=== PATIENT | male | born 1955 | race Caucasian/White ===

== ENCOUNTER → 2019-03-05 | Outpatient (CLI) | payer OTHER ==
[~2019-03-05] MED LIST: ELIQUIS5 MG PO; GLIPIZIDE 10 MG10 MG PO; LISINOPRIL-HCT1 EAC2 PO; METFORMIN HCL500 M3 PO; NEURONTIN300 MG PO; PERCOCET 10-321 EAC1 PO; SYMBICORT160 MCG/4. INH; TAMBOCOR 100 M100 M1 PO; TOPROL XL50 MG PO; VITAMIN D250000 UNIT PO; ZOCOR20 MG PO
[2019-03-05 10:16] LABS: HEMATOCRIT 44.4 % (42.0-52.0); HEMOGLOBIN 14.2 gm/dL (14.0-18.0); MCHC 31.9 g/dL (28.0-37.0); MCV 81.6 fL (80.0-100.0); RBC 5.45 mil/uL (4.50-6.00); RDW 15.6 % (10.5-14.5); WBC 8.3 thou/uL (4.0-11.0)
[2019-03-05 10:25] LABS: ALBUMIN 3.7 g/dL (3.4-5.0); CALCIUM 9.8 mg/dL (8.5-10.1); POTASSIUM 4.3 mmol/L (3.5-5.1); TOTAL BILIRUBIN 0.6 mg/dL (<0.1-1.0); TOTAL PROTEIN 7.2 g/dL (6.4-8.2)
== END ==
LOC: CAT 09:39
PROVIDERS: Internal Medicine Cardiovascular Disease
DX: K76.89 Other specified diseases of liver (principal); I48.91 Unspecified atrial fibrillation

== ENCOUNTER 2019-03-13 06:38 | Observation (INO) | payer OTHER ==
[~2019-03-13] VITALS: Ht 182.9 cm; Wt 146.5 kg
[2019-03-13 07:11] VITALS: BP 138/82
[2019-03-13 07:19] LABS: ABSOLUTE NEUTROPHILS 6.4 thou/uL (1.4-8.2); BASOPHILS 0.9 % (0.0-2.0); EOSINOPHILS 2.7 % (0.0-3.0); HEMATOCRIT 45.6 % (42.0-52.0); HEMOGLOBIN 14.7 gm/dL (14.0-18.0); LYMPHOCYTES 13.9 % (24.0-44.0); MCH 26.3 pg (26.0-34.0); MCHC 32.2 g/dL (28.0-37.0); MCV 81.8 fL (80.0-100.0); MONOCYTES 10.3 % (1.0-8.0); PLATELET COUNT 239 thou/uL (150-400); POLYS 72.2 % (36.0-66.0); RBC 5.58 mil/uL (4.50-6.00); RDW 15.6 % (10.5-14.5); WBC 8.9 thou/uL (4.0-11.0)
[2019-03-13] MEDS ORDERED: ELIQUIS5 MG PO (07:23)
[2019-03-13] MEDS ORDERED: SYMBICORT160 MCG/4. INH (07:24)
[2019-03-13] MEDS ORDERED: NEURONTIN300 MG PO (07:25)
[2019-03-13] MEDS ORDERED: TAMBOCOR 100 M100 M1 PO (07:25)
[2019-03-13] MEDS ORDERED: GLIPIZIDE 10 MG10 MG PO (07:26)
[2019-03-13] MEDS ORDERED: METFORMIN HCL500 M3 PO (07:27)
[2019-03-13] MEDS ORDERED: LISINOPRIL-HCT1 EAC2 PO (07:27)
[2019-03-13] MEDS ORDERED: PERCOCET 10-321 EAC1 PO (07:28)
[2019-03-13] MEDS ORDERED: TOPROL XL50 MG PO (07:28)
[2019-03-13] MEDS ORDERED: ZOCOR20 MG PO (07:28)
[2019-03-13] MEDS ORDERED: VITAMIN D250000 UNIT PO (07:29)
[2019-03-13 07:31] LABS: CREATININE 1.2 mg/dL (0.7-1.3); POTASSIUM 4.1 mmol/L (3.5-5.1)
[2019-03-13 07:33] LABS: PROTIME 10.9 Seconds (9.3-11.4)
--- NOTE | 2019-03-13 08:04 | EKG ---
[address] [address] ELECTROCARDIOGRAM REPORT Name: AMBAR RAHMAN Room #: REG VALERIA Zoey#: [id number] Admission: 03/13/19 Attend Phys: Chandler Mccalulm MD Discharge: Date of : 51 Report #: [id number] THIS REPORT FOR: //name// [facility] Test Date: 2019-03-13 Test Time: 07:30:05 Pat Name: AMBAR RAHMAN Department: Room: Gender: Control Equipment Electrician: : 1955 Requested By: Chandler Mccallum Order Number: [id number] MD: Shen Morales Measurements Intervals [place] Rate: 95 P: -71 NC: 180 QRS: -71 QRSD: 144 T: 82 QT: 400 QTc: 503 Interpretive Statements Atrial flutter RBBB and LAFB Left ventricular hypertrophy No previous ECG available for comparison Electronically Signed On 03-13-2019 8:04:42 CDT by Shen Morales [email or web address] <ELECTRONICALLY SIGNED> By: Shen Morales MD, [facility] 03/13/19 0804 0730 0730 Shen Morales MD, FACC /EPI
--- NOTE | 2019-03-13 13:44 | NUR ---
PT ORIENTED TO ROOM AND UNIT. BED LOW AND LOCKED, SIDE RAILS UPX3, CALL LIGHT IN REACH. TELE APPLIED. RIGHT GROIN CDI WITH NO HEMATOMA. WILL CONTNINUE TO ASSESS.
--- NOTE | 2019-03-13 14:49 | NUR ---
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
[2019-03-13 14:58] VITALS: BP 121/100
--- NOTE | 2019-03-13 15:35 | NUR ---
HELP PRESSURE ON RIGHT GROIN FOR 5MIN. RIGHT GROIN OOZING RED BLOOS. OOZING HAS STOPPED. REINFORCE DRESSING.
--- NOTE | 2019-03-13 18:46 | NUR ---
CHANGE DRESSING RIGHT GROIN. INSTRUCTED BY [facility] NURSE TO CHANGE AND REINFORCE DRERSSING NEEDED.
[2019-03-13 20:29] VITALS: BP 124/84
[2019-03-14 00:30] VITALS: BP 126/69
[2019-03-14 04:30] VITALS: BP 125/74
[2019-03-14 07:46] VITALS: BP 142/66
[2019-03-14 07:47] LABS: HEMATOCRIT 40.6 % (42.0-52.0); HEMOGLOBIN 12.9 gm/dL (14.0-18.0); MCHC 31.8 g/dL (28.0-37.0); MCV 81.9 fL (80.0-100.0); RBC 4.95 mil/uL (4.50-6.00); RDW 15.7 % (10.5-14.5); WBC 12.8 thou/uL (4.0-11.0)
[2019-03-14 10:15] VITALS: BP 142/66
--- NOTE | 2019-03-14 10:18 | EKG ---
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1955 Requested By: Lindsey Harris Order Number: [id number] MD: Rajesh Dubon Measurements Intervals Kimberly Rate: 85 P: 38 MA: 180 QRS: -69 QRSD: 126 T: 85 QT: 386 QTc: 459 Interpretive Statements Sinus rhythm Nonspecific IVCD with LAD Left ventricular hypertrophy Compared to ECG 03/13/2019 07:30:05 Intraventricular conduction delay now present Atrial flutter no longer present Left anterior fascicular block no longer present Right bundle-branch block no longer present Electronically Signed On 03-14-2019 10:18:35 CDT by Rajesh Dubon [email or web address] <ELECTRONICALLY SIGNED> By: Rajesh Dubon MD 03/14/19 1018 1523 1523 Rajesh Dubon MD /EPI
--- NOTE | 2019-03-14 11:03 | NUR ---
ASSUMMED PT CARE AT APPROXIMATELY 0700. PT A&O X4. FALL PRECAUTIONS IN PLACE. ASSESSMENT CHARTED. VITAL SIGNS STABLE. BLOOD SUGARS STABLE. PT DENIES HAVING CHEST PAIN. PT DENIES HAVING SOB. PT DENIES HAVING ACUTE PAIN. PT AMBULATES STEADY/INDEPENDENT. PT DISCHARGING HOME C . PT AND SPOUSE RECEIVED DISCHARGE EDUCATION/INSTRUCTIONS. PT AND SPOUSE STATED UNDERSTANDING AND DENIED HAVING FURTHER QUESTIONS. IV DC. TELE DC. PT DENIES HAVING FURTHER CONCERNS. PT AWAITING HOSPITAL TRANSPORT TO ARRIVE.
--- NOTE | 2019-03-19 11:40 | P ---
[facility] [place] [address] PROCEDURE REPORT Name: AMBAR RAHMAN Room #: 212-P [facility] Minerva Greer#: [id number] Admission: 03/13/19 Attend Phys: Chandler Mccallum MD Discharge: 03/14/19 Date of : 51 Report #: [id number] THIS REPORT FOR: //name// CC: Chandler Caban ATRIAL FIBRILLATION ABLATION PREOPERATIVE DIAGNOSIS: Atrial fibrillation. PROCEDURES PERFORMED: 1. Atrial fibrillation ablation, CPT code 83960. 2. 3D mapping, CPT code 82452. 3. Intracardiac echo, CPT code 32632. ANESTHESIA: The patient underwent general anesthesia, with no anesthesia-related complications. DESCRIPTION OF PROCEDURE: The patient underwent informed consent. We discussed the details of the procedure including the risks, which include but not limited to bleeding, vascular damage, cardiac perforation as well as stroke or [place]. He understood these risks and is willing to proceed. The patient was brought to the EP laboratory in a fasting and sedated state, prepped and draped in a sterile fashion. I obtained access to the right femoral vein x 4, placing an 8, two 7, and a 9-Albanian short sheath using the modified Seldinger technique. Next, under fluoroscopy, I placed a decapolar catheter into the left atrium. Of note, it was very difficult to obtain coronary sinus access. At the end of the case, I finally was able to place a catheter into the CS. The ice catheter was placed in the right atrium, and baseline images were taken. At baseline, the patient was in atrial fibrillation with a ventricular cycle length of 760 milliseconds, QRS duration 120 milliseconds with a left bundle branch block morphology and a QT interval 350 milliseconds. Next, the patient was systemically heparinized and a transseptal was performed using an SL1 sheath and a Naches needle. The transseptal was straightforward. I was able to get the wire up into the left superior pulmonary vein and then I was able to exchange the SL1 sheath for the cryo sheath. Via the cryo sheath, I placed the Lasso catheter and created a detailed 3D voltage map of the left atrium with specific emphasis of the 2 left and 2 right pulmonary veins. Next, the cryoballoon was placed into the left atrium and I performed a total of 4 freezes in the left superior pulmonary vein. It appeared that we had isolated during the second freeze, but there were still large potentials, unclear if these were left atrial appendage versus pulmonary vein potentials. I then turned my attention to the left inferior pulmonary vein. I performed a 4-minute freeze followed by a 3-minute freeze. This vein isolated within 50 seconds of the first freeze. I turned my attention to the right superior pulmonary vein, and while ablating this vein, the patient would have frequent runs of atrial [facility] [address] [place] [address] PROCEDURE REPORT Name: AMBAR RAHMAN Room #: 212-P JOHNNY Greer#: [id number] Admission: 03/13/19 Attend Phys: Chandler Mccallum MD Discharge: 03/14/19 Date of : 51 Report #: [id number] flutter. I performed a 3-minute freeze followed by a 90-second freeze followed by another 4-minute freeze. After these freezes were completed, there were still some small signals noted. The patient had converted to sinus rhythm from his atrial flutter/SVT. When I tried pacing these signals, there was no conduction to the left atrium. As such, I think these were far field right atrial signals. I then turned my attention to the left inferior pulmonary vein and performed a single 4-minute freeze as this vein isolated within 45 seconds. Actually, the patient had gone into his SVT again when I was in this right inferior pulmonary vein, and as this vein isolated and slowed, his atrial flutter terminated. I then inspected the veins and they appeared to be isolated. I then went in with the Lasso and created a voltage map, and there were large signals in the left superior pulmonary vein, but these did not capture consistent with left atrial appendage signals. The left inferior and right inferior were clearly isolated. The right superior and again did have these sharp potentials, but pacing at high output, they would not capture. Therefore, I do think these are truly arising from the right atrium. At this point, the patient was still having some episodes of SVT. There was a 1:1 conduction between the A and the V. It was unclear if this was an atrial flutter versus an SVT. Therefore, I placed a His catheter and RV catheter and was able to induce an atrial flutter with a cycle length of 370 milliseconds, and pacing the ventricle, I could dissociate the V from the A, and then, there were periods of times where I would see 2:1 conduction suggesting that this was an atrial flutter. I therefore went to the left atrium with the Lasso catheter to start mapping this and it terminated. We reinduced another atrial flutter cycle length 350 milliseconds and again this terminated. It appeared to have a proximal and distal activation on the CS catheter, but did not have classic-looking flutter waves. Again, I reinduced and again this terminated after 10-20 seconds. As such, I did not have a clear target for ablation, and at this point, the procedure was concluded. Using intracardiac ultrasound, I verified there was no pericardial effusion. The patient received systemic protamine, and once ACT was within acceptable range, catheters and sheaths were pulled. A [id number] suture was performed at the right groin. The patient awoke neurologically and hemodynamically intact. No complications and no significant bleeding. CONCLUSIONS: 1. Successful atrial fibrillation ablation with successful wide circumferential ablation of the pulmonary veins. 2. Multiple different atrial flutter circuits that could not be appropriately mapped due to arrhythmia instability. RECOMMENDATIONS: The patient will be monitored overnight in the CCU with [facility] [address] [place] [address] PROCEDURE REPORT Name: JOSIAHAMBAR Room #: 212-P [facility] Minerva Greer#: [id number] Admission: 03/13/19 Attend Phys: Chandler Mccallum MD Discharge: 03/14/19 Date of : 51 Report #: [id number] anticipated discharge in the morning. We will continue with flecainide and anticoagulation at discharge. <ELECTRONICALLY SIGNED> By: Chandler Mccallum MD 03/19/19 1140 1242 0322 Chandler Mccallum MD /nt
== END 2019-03-14 11:00 | disposition home or self-care (01) ==
LOC: CATH 06:38 → EROBS 12:00 → 2N 12:59 → CATH 16:31 → 2N 03-14 11:00
PROVIDERS: ADMIT Internal Medicine Cardiovascular Disease
DX: I48.0 Paroxysmal atrial fibrillation (principal); I48.92 Unspecified atrial flutter; E11.9 Type 2 diabetes mellitus without complications; I10 Essential (primary) hypertension; E66.9 Obesity, unspecified; Z68.41 Body mass index [BMI] 40.0-44.9, adult; Z88.1 Allergy status to other antibiotic agents
CPT/HCPCS: 62110; 62900; 65020; 65040; 70005

== ENCOUNTER 2021-02-13 06:33 | Observation (INO) | payer OTHER ==
[~2021-02-13] VITALS: Ht 182.9 cm; Wt 136.1 kg
[2021-02-13 07:58] LABS: ABSOLUTE NEUTROPHILS 7.6 thou/uL (1.4-8.2); BASOPHILS 0.5 % (0.0-2.0); EOSINOPHILS 2.1 % (0.0-3.0); HEMATOCRIT 43.7 % (42.0-52.0); HEMOGLOBIN 13.8 gm/dL (14.0-18.0); LYMPHOCYTES 13.2 % (24.0-44.0); MCH 25.8 pg (26.0-34.0); MCHC 31.7 g/dL (28.0-37.0); MCV 81.5 fL (80.0-100.0); MONOCYTES 10.1 % (1.0-8.0); PLATELET COUNT 259 thou/uL (150-400); POLYS 74.1 % (36.0-66.0); RBC 5.36 mil/uL (4.50-6.00); RDW 16.6 % (10.5-14.5); WBC 10.2 thou/uL (4.0-11.0)
[2021-02-13 08:02] LABS: CALCIUM 9.3 mg/dL (8.5-10.1); CREATININE 1.5 mg/dL (0.7-1.3); POTASSIUM 4.5 mmol/L (3.5-5.1)
[2021-02-13 08:09] LABS: ALBUMIN 3.2 g/dL (3.4-5.0); TOTAL BILIRUBIN 0.3 mg/dL (0.2-1.0); TOTAL PROTEIN 7.6 g/dL (6.4-8.2)
[2021-02-13 08:19] LABS: APTT 27.2 Seconds (24.5-32.8); PROTIME 10.1 Seconds (9.3-11.4)
[2021-02-13 16:45] VITALS: BP 148/87
[2021-02-13 17:30] VITALS: BP 140/75
[2021-02-13 18:00] VITALS: BP 137/77
[2021-02-13 19:00] VITALS: BP 142/75
[2021-02-13 19:47] VITALS: BP 142/78
[2021-02-13 23:53] VITALS: BP 125/69
--- NOTE | 2021-02-14 03:27 | NUR ---
Assumed pt care at 1900. Pt is alert and oriented. No sign of distress noted. Right groin site intact. Groin site clean dry and intact. Verbalizes pain. Pain med administered to pt. Assessment completed and documented. Scheduled meds administered. No acute event through the night.Continue to monitor. Pending discharge. No further needs at this time.
[2021-02-14 03:29] VITALS: BP 150/73
[2021-02-14 08:00] VITALS: BP 131/80
[2021-02-14 12:00] VITALS: BP 154/95
[2021-02-14] MEDS ORDERED: TAMBOCOR 100 M100 M1 PO (12:37)
[2021-02-14 13:07] VITALS: BP 154/95
--- NOTE | 2021-02-14 13:29 | NUR ---
ASSESSMENT CHARYTED. PT ALERT AND ORIENTED. VSS. DENIED HAVING PAIN OR DISCOMFORT. RIGHT GROIN INCISION C/D/I. NO HEMATOMA NOTED. SEEN BY DR. HOANG. ORDERS GIVEN TO DISCHARGE PT TO HOME. DISCHARGE INSTRUCTIONS GIVEN TO PT AND THE . THEY BOTH VERBERLISED UNDERSTANDING.
--- NOTE | 2021-03-01 13:05 | P ---
[facility] [place] [address] PROCEDURE REPORT Name: AMBAR RAHMAN Room #: [facility] Minerva Greer#: [id number] Admission: 02/13/21 Attend Phys: Chandler Mccallum MD Discharge: 02/14/21 Date of : 51 Report #: [id number] THIS REPORT FOR: cc: NO FAMILY PHYSICIAN or PCP NO FAMILY PHYSICIAN or PCP Chandler Mccallum MD ~ DATE OF SERVICE: 02/13/2021 PREOPERATIVE DIAGNOSES: Atrial fibrillation and atrial flutter. POSTOPERATIVE DIAGNOSES: Atrial fibrillation and atrial flutter. PROCEDURES PERFORMED: 1. Atrial fibrillation ablation, CPT code 77130. 2. 3D mapping, CPT code 37331. 3. Intracardiac echo, CPT code 66251. 4. Focal ablation, CPT code 17581. 5. Second pathway ablation, CPT code 22955. ANESTHESIA: The patient underwent general anesthesia with no anesthesia related complications. DESCRIPTION OF PROCEDURE: The patient underwent informed consent. We discussed the details of the procedure including the risks, which include but not limited to bleeding, vascular damage, stroke, [place], cardiac perforation, damage to the lytton conduction system requiring permanent pacemaker. He understood these risks and is willing to proceed. The patient was brought to the EP laboratory in a fasting and sedated state, prepped and draped in a standard fashion. I obtained access to the right femoral vein and placed an 8, 9 and 7-Burmese short sheath using the modified Seldinger technique. Next, under fluoroscopy, a decapolar catheter was placed in the coronary sinus and ICE catheter was placed into the right atrium. The patient at baseline was in atrial flutter with an atrial cycle length of 236 milliseconds and proximal and distal activation along the CS. As such, I created a 3D geometry of the right atrium and mapped the flutter and this was consistent with cavotricuspid isthmus dependent flutter. Therefore, I performed ablation at 6 o'clock along the cavotricuspid isthmus at 50 bustamante until there was termination. Post-ablation, there was evidence of bidirectional block with a transisthmus conduction time of 150 milliseconds. As such, the patient was prepped for transseptal. The patient was systemically heparinized and a transseptal was performed using the Agilis sheath and a [place] needle. This was straightforward and once in the left atrium, I used the PentaRay catheter to create a 3D geometry of the left atrium. There was evidence of isolation of all the pulmonary veins except for the right upper branch of the right inferior pulmonary vein. Therefore, I started by reisolating this right inferior [address] [address] PROCEDURE REPORT Name: JOSIAHAMBAR Room #: 210-P JOHNNY Greer#: [id number] Admission: 02/13/21 Attend Phys: Chandler Mccallum MD Discharge: 02/14/21 Date of : 51 Report #: [id number] pulmonary vein. There was also evidence of extensive left atrial fibrosis and scarring. Therefore, I decided to proceed with left atrial posterior wall isolation. I performed an ablation line along the roof and along the floor of the right atrium and post-ablation, a repeat map was performed showing that all veins were now isolated and the posterior wall was now isolated as well. As such, the patient was in sinus rhythm, sinus cycle length 1340 milliseconds, WA interval 176 milliseconds, QRS duration 110 milliseconds, QT interval 480 milliseconds. There was no evidence of pericardial effusion. The patient then received systemic protamine. All catheters and sheaths were pulled and hemostasis obtained. The patient awoke neurologically and hemodynamically intact. No complications. No significant bleeding. CONCLUSION: 1. Successful ablation of cavotricuspid isthmus dependent flutter with evidence of bidirectional block. 2. Successful AFib ablation with re-isolation of the right inferior pulmonary vein. 3. Successful posterior wall isolation. <ELECTRONICALLY SIGNED> By: Chandler Mccallum MD 03/01/21 1305 1305 0004 Chandler Mccallum MD /nt
== END 2021-02-14 13:45 | disposition home or self-care (01) ==
LOC: CATH 06:33 → 2N 17:06
PROVIDERS: ADMIT Internal Medicine Cardiovascular Disease; ATTEND Internal Medicine Cardiovascular Disease
DX: I48.0 Paroxysmal atrial fibrillation (principal); Z20.822 Contact with and (suspected) exposure to COVID-19; I48.92 Unspecified atrial flutter; I10 Essential (primary) hypertension; E11.9 Type 2 diabetes mellitus without complications; E66.9 Obesity, unspecified
CPT/HCPCS: 62110; 62900; 65020; 70005